=== PATIENT | female | born 1995 | race African-American/Black ===

== ENCOUNTER 2020-04-02 22:00 | Observation (INO) ==
[2020-04-02] MEDS ORDERED: ADENOSINE 6 MG/2 ML VIAL ONE (22:12)
[2020-04-02] MEDS ORDERED: LORazepam 2 MG/1 ML VIAL ONE (22:15)
[2020-04-02] MEDS ORDERED: LORazepam 2 MG/1 ML VIAL IV STA (22:17)
[2020-04-02] MEDS ORDERED: ONDANSETRON 4 MG/2 ML VIAL ONE (22:23)
[2020-04-02] MEDS ORDERED: ONDANSETRON 4 MG/2 ML VIAL IV STA (22:25)
[2020-04-02] MEDS ORDERED: ASPIRIN 325 MG TABLET PO STA (22:29)
[2020-04-02] MEDS ORDERED: ADENOSINE 6 MG/2 ML VIAL IV STA (22:29)
[2020-04-02 23:27] LABS: Apearance,Urine CLEAR (Clear); Bilirubin,Urine Negative (Negative); Blood, Urine Small mg/dL (Negative); Glucose,Urine (UA) Negative (Negative); Hyaline Casts,Urine 1 /LPF (0-3); Ketones,Urine Negative (Negative); Mucus,Urine Occasional /LPF (Occasional); Nitrite,Urine Negative (Negative); Protein,Urine Negative; RBC,Urine <1 /HPF (0-4); Squamous Epithelial Cell,Urine Occasional /HPF (0-10); Urine Color Straw (Yellow); Urine Specific Gravity 1.006 (1.001-1.035); Urine Urobilinogen < 2.0 EU/DL (0.2-1.0); WBC,Urine <1 /HPF (0-6)
[2020-04-02 23:32] LABS: Barbiturates Screen,Urine Negative (Negative); Benzodiazepines Screen,Urine Negative (Negative); Cannabinoid Screen,Urine Negative (Negative); Opiate Screen,Urine Negative (Negative); Phencyclidine Screen,Urine Negative (Negative)
[2020-04-02 23:36] LABS: Basophils % 0.1 % (0.0-0.8); Eosinophils # 0.1 10*3/uL (0.0-0.87); Hematocrit 36.1 VOL% (35.7-47.0); Hemoglobin 10.9 GM/DL (12.0-16.0); Immature Granulocytes % 0.4 %; Immature Granulocytes Absolute 0.05 #; Lymphocytes # 2.6 10*3/uL (1.4-4.0); Lymphocytes % 18.7 % (21.3-54.2); Mean Corpuscular HGB Conc 30.2 GM/DL (32-36); Mean Corpuscular Volume 82.4 FL (87-102); Mean Platelet Volume 11.2 FL (9.6-12.0); Monocytes % 8.2 % (1.7-12.7); Neutrophils % 71.6 % (38.7-73.9); Platelet Count 263 T/CUMM (130-400); Red Blood Count 4.38 MC/CUMM (3.8-5.5); Red Cell Distribution Width 15.3 % (9.3-17.3); White Blood Count 13.6 T/CUMM (4-12)
[2020-04-02 23:57] LABS: PT Patient Result 11.2 SECS (9.8-11.9)
[2020-04-03 00:14] LABS: Alanine Aminotransferase 12 U/L (13-56); Albumin 3.1 G/DL (3.4-5.0); Alkaline Phosphatase 92 U/L (45-117); Aspartate Amino Transferase 13 U/L (0-37); Bilirubin,Total < 0.39 MG/DL (0.2-1.0); Blood Urea Nitrogen 12 MG/DL (7-18); Calcium 8.5 MG/DL (8.5-10.1); Estimated Glom Filtration Rate 197 ML/MIN; Free T4 (Free Thyroxine) 1.09 NG/DL (0.76-1.46); Glucose 80 MG/DL (74-106); Osmolality,Calculated 275.5 MOS/KG (273-304); Total Protein 7.7 G/DL (6.4-8.3)
[2020-04-03] MEDS ORDERED: MAGNESIUM SULF RIDER 2 GM in PREMIX 1 EACH IV STA (01:45)
[2020-04-03] MEDS ORDERED: NICOTINE 21 MG/24 HR PATCH TRANSDERM PRN (01:59)
[2020-04-03] MEDS ORDERED: GLUCAGON 1 MG VIAL IM PRN (01:59)
[2020-04-03] MEDS ORDERED: ACETAMINOPHEN 325 MG TABLET PO PRN (01:59)
[2020-04-03] MEDS ORDERED: DEXTROSE 50% 25 GM/50 ML VIAL IV PRN (01:59)
[2020-04-03] MEDS ORDERED: ONDANSETRON 4 MG/2 ML VIAL IV PRN (01:59)
[2020-04-03] MEDS ORDERED: METOPROLOL SUCCINATE XL 25 MG TABLET PO SCH (09:00)
[2020-04-03] MEDS ORDERED: POTASSIUM CHLORIDE 20 MEQ TABLET PO ONE (10:09)
[2020-04-03] MEDS: LOSARTAN 25 MG TABLET PO SCH (10:43)
[2020-04-03] MEDS: ASPIRIN 325 MG TABLET PO SCH (10:43)
[2020-04-03] MEDS: ASCORBIC ACID 500 MG TABLET PO SCH ×2 (10:44→20:42)
[2020-04-03] MEDS: MAGNESIUM OXIDE 400 MG TABLET PO SCH ×2 (14:44→20:42)
[2020-04-03] MEDS: POTASSIUM CHLORIDE 20 MEQ TABLET PO SCH (14:44)
[2020-04-03] MEDS ORDERED: LORazepam 1 MG TABLET PO ONE (20:11)
[2020-04-03] MEDS: METOPROLOL SUCCINATE XL 25 MG TABLET PO SCH (20:41)
[2020-04-04 05:35] LABS: Basophils % 0.3 % (0.0-0.8); Eosinophils # 0.2 10*3/uL (0.0-0.87); Hematocrit 35.3 VOL% (35.7-47.0); Hemoglobin 10.7 GM/DL (12.0-16.0); Immature Granulocytes % 0.4 %; Immature Granulocytes Absolute 0.04 #; Lymphocytes # 2.9 10*3/uL (1.4-4.0); Lymphocytes % 27.3 % (21.3-54.2); Mean Corpuscular HGB Conc 30.3 GM/DL (32-36); Mean Corpuscular Volume 81.9 FL (87-102); Mean Platelet Volume 11.7 FL (9.6-12.0); Monocytes % 7.7 % (1.7-12.7); Neutrophils % 62.3 % (38.7-73.9); Platelet Count 304 T/CUMM (130-400); Red Blood Count 4.31 MC/CUMM (3.8-5.5); Red Cell Distribution Width 15.2 % (9.3-17.3); White Blood Count 10.6 T/CUMM (4-12)
[2020-04-04 05:57] LABS: Calcium 8.6 MG/DL (8.5-10.1); Osmolality,Calculated 271.8 MOS/KG (273-304)
[2020-04-04] MEDS: ASCORBIC ACID 500 MG TABLET PO SCH (09:49)
[2020-04-04] MEDS: MAGNESIUM OXIDE 400 MG TABLET PO SCH (09:49)
[2020-04-04] MEDS: ASPIRIN 325 MG TABLET PO SCH (09:49)
[2020-04-04] MEDS: METOPROLOL SUCCINATE XL 25 MG TABLET PO SCH (09:49)
[2020-04-04] MEDS: POTASSIUM CHLORIDE 20 MEQ TABLET PO SCH (09:50)
[2020-04-04] MEDS: LOSARTAN 25 MG TABLET PO SCH (09:50)
[2020-04-04 12:12] VITALS: BP 129/64
== END 2020-04-04 15:36 | disposition home or self-care (01) ==
LOC: N.ED 22:00 → N.EDINP 22:00 → N.TELEN 04-03 12:49
PROVIDERS: ADMIT Hospitalist; ATTEND Hospitalist